=== PATIENT | male | born 1940 | race Caucasian/White ===

== ENCOUNTER 2017-12-21 17:06 | Emergency (ER) ==
[2017-12-21 17:12] VITALS: BP 133/87; TEMP 98; BMI 28.6
--- NOTE | 2017-12-21 18:29 | ED.PDOC ---
General ED Provider: Dr. NICOLAS DENIS Chief Complaint: Fall Stated Complaint: RIGHT CHEST WALL, NECK INJURY Time Seen by Physician: 17:30 (FALL LAST WEEK) Mode of Arrival: Walk-In Information Source: Patient Exam Limitations: No limitations Primary Care Provider: JACKELINE PAYNE Nursing and Triage Documentation Reviewed and Agree: Yes Reviewed sepsis parameters & appropriate labs ordered?: Yes System Inflammatory Response Syndrome: Not Applicable Sepsis Protocol: For patient's 13 years and over: Temp is 96.8 and below OR 101 and greater Pulse >90 BPM Resp >20/minute Acutely Altered Mental Status Are patient's symptoms suggestive of a new infection, such as: -Pneumonia -Skin, Soft Tissue -Endocarditis -UTI -Bone, Joint Infection -Implantable Device -Acute Abdominal Infection -Wound Infection -Meningitis -Blood Stream Catheter Infection -Unknown System Inflammatory Response Syndrome: Not Applicable Trauma/Injury Complaint Exam - Trauma Complaint/Exam Location of Pain or Injury: Reports: Chest (RIGHT LATERAL CHEST, SCALP AND NECK ) Mechanism of Injury: Reports: Fall ( ) Onset/Duration: 7 DAYS AGO Symptoms Are: Still present Timing of Treatment: Delayed Initial Severity: Moderate Current Severity: Moderate Character: Reports: Aching Aggravating: Reports: Palpation Alleviating: Reports: Rest Associated Signs and Symptoms: Denies: LOC, Confusion, Memory loss, Lethargy, Vomiting, Bleeding, Bruising, Swelling, Extremity disuse, Painful respiration, Hoarseness, Dysphagia, Hemoptysis, Significant blood loss Related History: Reports: Similar episode Penetrating Injury Risk Factors: Reports: None Nexus Low Risk Criteria: No evidence of intoxicat., No Altered LOC, No focal neuro deficit, No distracting injuries Glascow Coma Scale (see protocol): 15 Trauma Findings: Present: Neck tenderness. Absent: [place] eyes, Hemotympanum, Nasal deformity, Dental tenderness, Dental injury, Dental malocclusion, Neck spasm, SubQ Air, Crepitus, Airway obstructed, Trachea displaced, Labored respirations, Decreased breath sounds, Muffled heart sounds, Weak pulses, Absent pulses, Abdominal distention, Pelvic tenderness, Pelvic instability, Perineal blood, Meatal blood Skin Findings: Present: Normal findings Differential Diagnoses: Abrasion, Sprain, Strain Review of Systems - Review Of Systems Constitutional: Reports: No symptoms Eyes: Reports: No symptoms Ears, Nose, Mouth, Throat: Reports: No symptoms Respiratory: Reports: Cough Cardiac: Reports: Chest pain (RIGHT CHEST PAIN) GI: Reports: No symptoms : Reports: No symptoms Musculoskeletal: Reports: No symptoms Skin: Reports: No symptoms Neurological: Reports: No symptoms Endocrine: Reports: No symptoms Hematologic/Lymphatic: Reports: No symptoms All Other Systems: Reviewed and Negative Past Medical History - Past Medical History Previously Healthy: Yes Endocrine: Reports: None Cardiovascular: Reports: None Respiratory: Reports: None Hematological: Reports: None Gastrointestinal: Reports: None Genitourinary: Reports: None Neuro/Psych: Reports: None Musculoskeletal: Reports: None Cancer: Reports: None - Surgical History General Surgical History: Reports: None - Family History Family History: Reports: None - Social History Smoking Status: Former smoker Hx Substance Use: No Alcohol Screening: Occasionally Physical Exam - Physical Exam Appearance: Well-appearing, No pain distress, Well-nourished Eyes: REHANA, EOMI, Conjunctiva clear ENT: Ears normal, Nose normal, Oropharynx normal Respiratory: Airway patent, Breath sounds clear, Breath sounds equal, Respirations nonlabored Cardiovascular: RRR, Pulses normal, No rub, No murmur GI/: Soft, Nontender, No masses, Bowel sounds normal, No Organomegaly Musculoskeletal: Normal strength, ROM intact, No edema, No calf tenderness Skin: Warm, Dry (ABRASION SCALP) Neurological: Sensation intact, Motor intact, Reflexes intact, Cranial nerves intact, Alert, Oriented Psychiatric: Affect appropriate, Mood appropriate Interpretation - Radiology Interpretation Radiology Interpretation By: Radiologist Radiology Results: No acute changes Critical Care Note - Critical Care Note Total Time (mins): 0 Course - Course Orders, Labs, Meds: Orders Category Date Time Status CT CERVICAL SPINE W/O CONTRAST Stat RADS 12/21/17 17:[address] CHEST W/O CONTRAST Stat RADS 12/21/17 17:[address] HEAD W/O CONTRAST Stat RADS 12/21/17 17:28 Ordered Vital Signs: Temp Pulse Resp BP Pulse Ox 12/21/17 17:08 98.0 F 100 H 20 133/87 97 Departure - Departure Time of Disposition: 19:00 Disposition: HOME SELF-CARE Discharge Problem: Neck pain, Chest wall pain Instructions: Chest Wall Pain (ED), Thoracic Pain (ED) Condition: Good Pt referred to PMD for follow-up: Yes IPMP verified?: No Additional Instructions: Please call your Family Physician as soon as possible to schedule a follow-up appointment. Allergies/Adverse Reactions: Allergies No Known Allergies Allergy (Unverified 12/21/17 17:12) Home Medications: Ambulatory Orders Indomethacin [Indocin] 25 mg PO QID PRN 12/21/17 Levothyroxine Sodium [Synthroid] 75 mcg PO QDAC 12/21/17 Meclizine HCl 25 mg PO QID 12/21/17 Quinapril HCl 40 mg PO DAILY 12/21/17 Ranitidine HCl 150 mg PO DAILY 12/21/17 Triamterene/Hydrochlorothiazid [Triamterene-Hctz 37.5-25 mg Cp] 1 each PO DAILY 12/21/17 Disposition Discussed With: Patient, Family
--- NOTE | 2017-12-21 18:35 | CT ---
EXAM: CT scan of the chest without contrast HISTORY: Right rib pain, injury TECHNIQUE: Imaging of the chest was performed without contrast. 5 mm thin axial images and coronal and sagittal reconstructions and rotated 3-D reconstructions of the ribs were provided for interpreta tion. FINDINGS: Old right-sided rib fractures are seen. No definite acute rib fractures are identified. The scapula appear intact. No acute fractures are seen within the clavicles. The thoracic vertebral bodies are intact. The heart is normal size. No mediastinal abnormalities are seen. The lungs are clear. There is no pleural separation. IMPRESSION: No acute traumatic abnormalities are seen within the thorax.
--- NOTE | 2017-12-21 18:35 | CT ---
EXAM: CT scan of the head without contrast HISTORY: Fall TECHNIQUE: Imaging of the head was performed without contrast. 5 mm thin axial images and coronal a nd sagittal images were provided for interpretation. FINDINGS: The lateral ventricles and cortical sulci are prominent from atrophy. Diffuse low density changes are seen throughout the supratentorial white matter. No acute hemorrhages are seen. There is no mass effect. There are no extraaxial collections. The paranasal sinuses and mastoid air cells are clear. The calvarium and extracranial soft tissues are normal. IMPRESSION: No acute traumatic abnormalities are seen. Chronic small vessel ischemic changes seen throughout the supratentorial white matter. Mild cerebral atrophy.
--- NOTE | 2017-12-21 18:43 | CT ---
EXAM: CT of the cervical spine without contrast. HISTORY: Injury. Pain. PROCEDURE: Contiguous axial CT images of the cervical spine without contrast with coronal and sagitt al reformats. FINDINGS: There is normal alignment of the cervical vertebral bodies and facets. The vertebral body heights are maintained. There is multilevel disc space narrowing. There are posterior osteophytes a t multiple levels of the cervical spine. There is multilevel facet arthropathy. The C1-2 relationsh ip is maintained. No prevertebral soft tissue abnormality. Impression: No evidence of fracture. Normal alignment of the cervical spine with degenerative changes as described.
== END 2017-12-21 18:51 | disposition home or self-care (01) ==
LOC: ED 17:06
DX: R07.89 Other chest pain (principal); M54.2 Cervicalgia; S00.01XA Abrasion of scalp, initial encounter; W19.XXXA Unspecified fall, initial encounter
CPT/HCPCS: 99283

== ENCOUNTER 2023-01-10 15:54 | Observation (INO) ==
--- NOTE | 2023-01-10 16:13 | ED.PDOC ---
General <SANTOSH ALVARADO MD - Last Filed: 01/12/23 01:46> ED Provider: Dr. SANTOSH ALVARADO MD Chief Complaint: Chest Pain Stated Complaint: chest pain Time Seen by Provider: 01/10/23 16:07 Information Source: Patient Primary Care Provider: JACKELINE PAYNE Nursing and Triage Documentation Reviewed and Agree: Yes Does patient meet sepsis criteria?: No Sepsis Protocol: For patient's 13 years and over: Temp is 96.8 and below OR 101 and greater Pulse >90 BPM Resp >20/minute Acutely Altered Mental Status Are patient's symptoms suggestive of a new infection, such as: -Pneumonia -Skin, Soft Tissue -Endocarditis -UTI -Bone, Joint Infection -Implantable Device -Acute Abdominal Infection -Wound Infection -Meningitis -Blood Stream Catheter Infection -Unknown <LOW SU DO - Last Filed: 01/10/23 20:27> System Inflammatory Response Syndrome: Temp 101F or Greater and Not Applicable Review of Systems <SANTOSH ALVARADO MD - Last Filed: 01/12/23 01:46> Review Of Systems Cardiac: Reports Chest pain All Other Systems: Reviewed and Negative <LOW SU DO - Last Filed: 01/10/23 20:27> Review Of Systems Constitutional: Reports No symptoms PFSH <SANTOSH ALVARADO MD - Last Filed: 01/12/23 01:46> Medical History Hypertension I10 - Essential (primary) hypertension (ICD-10) Family History FATHER Colon cancer Mother CVA (cerebral vascular accident) SISTER Breast cancer BROTHER Parkinson disease Social History Smoking and tobacco status: Former smoker Alcohol intake: unknown Substance use type: does not use Adopted: No Caregiver/support person: Yes Foster care: No Household members: spouse Housing: house Marital status: M Lives independently: Yes Number of children: 5 Highest education level completed: Associate degree: occupational, technical, vocational program service: Yes status: medically discharged/retired branch: [employer] Current occupational status: retired Current diet type/program: regular Water heater temperature set < 120 degrees: Yes Working smoke detector in home: Yes Fire extinguisher in home: Yes Firearms in home: Yes Firearms unloaded and locked: Yes What type of physical activity do you participate in?: walking Physical Exam <SANTOSH ALVARADO MD - Last Filed: 01/12/23 01:46> Physical Exam Appearance: Reports Well-appearing Ill-appearing: None Pain Distress: None Eyes: Reports REHANA and EOMI ENT: Reports Ears normal, Nose normal and Oropharynx normal Neck: Supple Respiratory: Reports Airway patent, Breath sounds clear and Breath sounds equal Cardiovascular: Reports RRR, Pulses normal, No rub, No murmur and Other (mild left side chest wall tenderness on palpation) GI/: Reports Soft and Nontender Musculoskeletal: Reports Other (mild left parasternal tenderness on palpation) Skin: Reports Warm and Normal color Neurological: Reports Sensation intact and Motor intact Psychiatric: Reports Affect appropriate Interpretation <SANTOSH ALVARADO MD - Last Filed: 01/12/23 01:46> EKG Interpretation Time of EKG #1: 16:02 Rate: Normal Rhythm: Sinus Ectopy: None Evans: NL Interpretation: bifasicular block, no acute ST changes EKG Interpretation By: ED Physician <LOW SU DO - Last Filed: 01/10/23 20:27> Radiology Interpretation Radiology Interpretation By: ED Physician Radiology Results: Negative Exam Interpreted: CXR Xray Comments: no consolidation or pneumothroax Critical Care Note <SANTOSH ALVARADO MD - Last Filed: 01/12/23 01:46> Critical Care Note Total Critical Care Time (mins): 0 Course <SANTOSH ALVARADO MD - Last Filed: 01/12/23 01:46> Course 01/11/23 06:07 01/11/23 06:07 Orders, Labs, Meds: Lab Review 01/10/23 01/10/23 16:30 19:16 WBC 10.77 H RBC 5.29 Hgb 17.2 Hct 50.2 MCV 94.9 H MCH 32.5 H MCHC 34.3 RDW Coeff of Aguilar 12.4 Plt Count 283 Immature Gran % (Auto) 0.4 Neut % (Auto) 68.7 Lymph % (Auto) 20.0 [place] % (Auto) 9.1 Eos % (Auto) 1.5 Baso % (Auto) 0.3 Neut # (Auto) 7.4 H Lymph # (Auto) 2.2 [place] # (Auto) 1.0 Eos # (Auto) 0.2 Baso # (Auto) 0.0 Immature Gran # (Auto) 0.0 Sodium 132.8 L Potassium 3.74 Chloride 97.8 L Carbon Dioxide 29.7 Anion Gap 9.04 BUN 16.6 Creatinine 1.60 H Estimated GFR (MDRD) 42.00 BUN/Creatinine Ratio 10.37 Glucose 112.1 H Calcium 9.97 Total Bilirubin 0.76 AST 31.2 ALT 15.2 Alkaline Phosphatase 57.0 Troponin I < 0.012 0.012 Total Protein 7.31 Albumin 4.36 Globulin 2.95 Albumin/Globulin Ratio 1.47 D-Dimer 436.65 Orders Category Date Time Status PLACE PATIENT OBSERVATION .TO MEDSURG (MONITORED BED ADMISSION 01/10/23 20:30 Completed ) EKG-(ED ONLY) Stat CARDIO 01/10/23 16:32 Completed ACTIVITY .Early Mobilization for VTE Prevention CARE 01/10/23 20:30 Completed INTAKE & OUTPUT Q8HR CARE 01/10/23 20:30 Completed TELEMETRY MONITORING TELE CARE 01/10/23 20:30 Completed VITAL SIGNS Q4HR CARE 01/10/23 20:30 Completed CARDIAC DIET DIETARY 01/11/23 Breakfast Completed Monitor [ED [employer]IPAL APPLIED] .ONCE EMERGENCY 01/10/23 16:13 Completed CBC W/ AUTO DIFF DAILY@0600 LAB 01/11/23 06:07 Completed CBC W/ AUTO DIFF Stat LAB 01/10/23 16:30 Completed CMP [COMPREHENSIVE METABOLIC PANEL] Stat LAB 01/10/23 16:30 Completed COMPREHENSIVE METABOLIC PANEL DAILY@0600 LAB 01/11/23 06:07 Completed D-DIMER Stat LAB 01/10/23 19:16 Completed TROPONIN I Stat LAB 01/10/23 16:30 Completed TROPONIN I Stat LAB 01/10/23 19:16 Completed TROPONIN I Timed LAB 01/10/23 23:59 Completed Acetaminophen [Tylenol] Meds 01/10/23 20:41 Discontinued 650 mg PO Q4H PRN Aspirin [Aspirin Chewable] Meds 01/10/23 18:58 Discontinued 324 mg PO ONCE STA Diphenhydramine Inj [Benadryl] Meds 01/10/23 19:08 Discontinued 25 mg IVP ONCE ONE Hydralazine HCl Meds 01/10/23 20:35 Discontinued 10 mg IVP Q6H PRN Hydralazine HCl Meds 01/10/23 16:14 Discontinued 20 mg IVP ONCE STA Ketorolac Tromethamine [Toradol] Meds 01/10/23 16:14 Discontinued 30 mg IVP ONCE STA Morphine Sulfate [Morphine 2 mg/ml Syringe] Meds 01/10/23 18:07 Discontinued 2 mg IVP ONCE STA Ondansetron HCl/Pf [Zofran 4 mg/2 ml] Meds 01/10/23 20:41 Discontinued 4 mg IVP Q6H PRN Sodium Chloride 0.9% [Sodium Chloride] 1,000 ml Meds 01/10/23 17:46 Discontinued IV BOLUS CXR [CHEST, 1V AP ONLY] Stat RADS 01/10/23 16:13 Completed Medications Discontinued Medications Generic Name Dose Route Start Last Admin Trade Name Freq PRN Reason Stop Dose Admin Acetaminophen 650 mg 01/10/23 20:41 01/11/23 06:03 Acetaminophen 325 Mg Tablet PO 650 mg Q4H PRN Administration Mild Pain Amlodipine Besylate 5 mg 01/11/23 09:00 01/11/23 09:18 Amlodipine Besylate 5 Mg Tablet PO 5 mg DAILY AP Administration Aspirin 324 mg 01/10/23 18:58 01/10/23 19:06 Aspirin 81 Mg Tab.Chew PO 01/10/23 18:59 324 mg ONCE STA Administration Aspirin 81 mg 01/11/23 09:00 01/11/23 09:18 Aspirin 81 Mg Tab.Chew PO 81 mg DAILYWM AP Administration Dexamethasone Sodium Phosphate 10 mg 01/11/23 12:00 01/11/23 12:09 Dexamethasone Sod Phos 10 Mg/Ml Inj IVP 01/11/23 12:01 10 mg ONCE ONE Administration Diphenhydramine HCl 25 mg 01/10/23 19:08 01/10/23 19:25 Diphenhydramine Inj 50 Mg/Ml Vial IVP 01/10/23 19:09 25 mg ONCE ONE Administration Hydralazine HCl 20 mg 01/10/23 16:14 01/10/23 16:31 Hydralazine Hcl 20 Mg/Ml Sdv IVP 01/10/23 16:15 20 mg ONCE STA Administration Hydralazine HCl 10 mg 01/10/23 20:35 Hydralazine Hcl 20 Mg/Ml Sdv IVP Q6H PRN Hypertension Sodium Chloride 1,000 mls @ 1,000 mls/hr 01/10/23 17:46 01/10/23 17:58 Sodium Chloride IV 01/10/23 18:45 1,000 mls/hr BOLUS STA Administration Indomethacin 25 mg 01/11/23 08:48 Indomethacin 25 Mg Capsule PO QID PRN GOUT FLARE UP Ketorolac Tromethamine 30 mg 01/10/23 16:14 01/10/23 16:38 Ketorolac Tromethamine 30 Mg/Ml Vial IVP 01/10/23 16:15 30 mg ONCE STA Administration Ketorolac Tromethamine 15 mg 01/11/23 11:47 01/11/23 12:09 Ketorolac Tromethamine 15 Mg/Ml Vial IVP 01/11/23 11:48 15 mg ONCE ONE Administration Levothyroxine Sodium 112 mcg 01/12/23 06:30 Levothyroxine Sodium 112 Mcg Tablet PO QDAC AP Losartan Potassium 50 mg 01/11/23 09:00 01/11/23 09:18 Losartan Potassium 25 Mg Tablet PO 50 mg DAILY AP Administration Morphine Sulfate 2 mg 01/10/23 18:07 01/10/23 18:30 Morphine Sulfate 2 Mg/Ml Syringe IVP 01/10/23 18:08 2 mg ONCE STA Administration Nitroglycerin 0.4 mg 01/11/23 08:46 01/11/23 09:18 Nitroglycerin 0.4 Mg Tab.Subl SL 0.4 mg Q5MIN X 3 DOSES PRN Administration Chest Pain Ondansetron HCl 4 mg 01/10/23 20:41 Ondansetron Hcl/Pf 4 Mg/2 Ml Sdv IVP Q6H PRN Nausea / Vomiting Sodium Chloride 1 syr 01/11/23 06:00 01/11/23 12:09 0.9% Sodium Chloride 10 Ml Disp.Syrin IVF 1 syr Q8HR AP Administration Vital Signs: Temp Pulse Resp BP Pulse Ox 01/10/23 16:03 98.8 F 90 20 161/115 H 92 L 82 years old male with past medical history of hypertension hypothyroidism, came to the ER from home for chest pain. Patient has been having chest pain for 4 days the pain is on the left side radiating to the left arm which started when he was sleeping. The pain is nonexertional but would get better if he changes his position or sometimes if he raises her arm his arm above his head pain would get better. No previous similar episodes no fever. Ordered a chest x-ray, EKG shows normal sinus rhythm at 89 with bifascicular block no acute ST changes. <LOW SU, DO - Last Filed: 01/10/23 20:27> Course Orders, Labs, Meds: Lab Review 01/10/23 01/10/23 16:30 19:16 WBC 10.77 H RBC 5.29 Hgb 17.2 Hct 50.2 MCV 94.9 H MCH 32.5 H MCHC 34.3 RDW Coeff of Aguilar 12.4 Plt Count 283 Immature Gran % (Auto) 0.4 Neut % (Auto) 68.7 Lymph % (Auto) 20.0 [place] % (Auto) 9.1 Eos % (Auto) 1.5 Baso % (Auto) 0.3 Neut # (Auto) 7.4 H Lymph # (Auto) 2.2 [place] # (Auto) 1.0 Eos # (Auto) 0.2 Baso # (Auto) 0.0 Immature Gran # (Auto) 0.0 Sodium 132.8 L Potassium 3.74 Chloride 97.8 L Carbon Dioxide 29.7 Anion Gap 9.04 BUN 16.6 Creatinine 1.60 H Estimated GFR (MDRD) 42.00 BUN/Creatinine Ratio 10.37 Glucose 112.1 H Calcium 9.97 Total Bilirubin 0.76 AST 31.2 ALT 15.2 Alkaline Phosphatase 57.0 Troponin I < 0.012 0.012 Total Protein 7.31 Albumin 4.36 Globulin 2.95 Albumin/Globulin Ratio 1.47 D-Dimer 436.65 Orders Category Date Time Status PLACE PATIENT OBSERVATION .TO MEDSURG (MONITORED BED ADMISSION 01/10/23 20:30 Completed ) EKG-(ED ONLY) Stat CARDIO 01/10/23 16:32 Completed ACTIVITY .Early Mobilization for VTE Prevention CARE 01/10/23 20:30 Completed INTAKE & OUTPUT Q8HR CARE 01/10/23 20:30 Completed TELEMETRY MONITORING TELE CARE 01/10/23 20:30 Completed VITAL SIGNS Q4HR CARE 01/10/23 20:30 Completed CARDIAC DIET DIETARY 01/11/23 Breakfast Completed Monitor [ED [employer]IPAL APPLIED] .ONCE EMERGENCY 01/10/23 16:13 Completed CBC W/ AUTO DIFF DAILY@0600 LAB 01/11/23 06:07 Completed CBC W/ AUTO DIFF Stat LAB 01/10/23 16:30 Completed CMP [COMPREHENSIVE METABOLIC PANEL] Stat LAB 01/10/23 16:30 Completed COMPREHENSIVE METABOLIC PANEL DAILY@0600 LAB 01/11/23 06:07 Completed D-DIMER Stat LAB 01/10/23 19:16 Completed TROPONIN I Stat LAB 01/10/23 16:30 Completed TROPONIN I Stat LAB 01/10/23 19:16 Completed TROPONIN I Timed LAB 01/10/23 23:59 Completed Acetaminophen [Tylenol] Meds 01/10/23 20:41 Discontinued 650 mg PO Q4H PRN Aspirin [Aspirin Chewable] Meds 01/10/23 18:58 Discontinued 324 mg PO ONCE STA Diphenhydramine Inj [Benadryl] Meds 01/10/23 19:08 Discontinued 25 mg IVP ONCE ONE Hydralazine HCl Meds 01/10/23 20:35 Discontinued 10 mg IVP Q6H PRN Hydralazine HCl Meds 01/10/23 16:14 Discontinued 20 mg IVP ONCE STA Ketorolac Tromethamine [Toradol] Meds 01/10/23 16:14 Discontinued 30 mg IVP ONCE STA Morphine Sulfate [Morphine 2 mg/ml Syringe] Meds 01/10/23 18:07 Discontinued 2 mg IVP ONCE STA Ondansetron HCl/Pf [Zofran 4 mg/2 ml] Meds 01/10/23 20:41 Discontinued 4 mg IVP Q6H PRN Sodium Chloride 0.9% [Sodium Chloride] 1,000 ml Meds 01/10/23 17:46 Discontinued IV BOLUS CXR [CHEST, 1V AP ONLY] Stat RADS 01/10/23 16:13 Completed Medications Discontinued Medications Generic Name Dose Route Start Last Admin Trade Name Freq PRN Reason Stop Dose Admin Acetaminophen 650 mg 01/10/23 20:41 01/11/23 06:03 Acetaminophen 325 Mg Tablet PO 650 mg Q4H PRN Administration Mild Pain Amlodipine Besylate 5 mg 01/11/23 09:00 01/11/23 09:18 Amlodipine Besylate 5 Mg Tablet PO 5 mg DAILY AP Administration Aspirin 324 mg 01/10/23 18:58 01/10/23 19:06 Aspirin 81 Mg Tab.Chew PO 01/10/23 18:59 324 mg ONCE STA Administration Aspirin 81 mg 01/11/23 09:00 01/11/23 09:18 Aspirin 81 Mg Tab.Chew PO 81 mg DAILYWM AP Administration Dexamethasone Sodium Phosphate 10 mg 01/11/23 12:00 01/11/23 12:09 Dexamethasone Sod Phos 10 Mg/Ml Inj IVP 01/11/23 12:01 10 mg ONCE ONE Administration Diphenhydramine HCl 25 mg 01/10/23 19:08 01/10/23 19:25 Diphenhydramine Inj 50 Mg/Ml Vial IVP 01/10/23 19:09 25 mg ONCE ONE Administration Hydralazine HCl 20 mg 01/10/23 16:14 01/10/23 16:31 Hydralazine Hcl 20 Mg/Ml Sdv IVP 01/10/23 16:15 20 mg ONCE STA Administration Hydralazine HCl 10 mg 01/10/23 20:35 Hydralazine Hcl 20 Mg/Ml Sdv IVP Q6H PRN Hypertension Sodium Chloride 1,000 mls @ 1,000 mls/hr 01/10/23 17:46 01/10/23 17:58 Sodium Chloride IV 01/10/23 18:45 1,000 mls/hr BOLUS STA Administration Indomethacin 25 mg 01/11/23 08:48 Indomethacin 25 Mg Capsule PO QID PRN GOUT FLARE UP Ketorolac Tromethamine 30 mg 01/10/23 16:14 01/10/23 16:38 Ketorolac Tromethamine 30 Mg/Ml Vial IVP 01/10/23 16:15 30 mg ONCE STA Administration Ketorolac Tromethamine 15 mg 01/11/23 11:47 01/11/23 12:09 Ketorolac Tromethamine 15 Mg/Ml Vial IVP 01/11/23 11:48 15 mg ONCE ONE Administration Levothyroxine Sodium 112 mcg 01/12/23 06:30 Levothyroxine Sodium 112 Mcg Tablet PO QDAC AP Losartan Potassium 50 mg 01/11/23 09:00 01/11/23 09:18 Losartan Potassium 25 Mg Tablet PO 50 mg DAILY AP Administration Morphine Sulfate 2 mg 01/10/23 18:07 01/10/23 18:30 Morphine Sulfate 2 Mg/Ml Syringe IVP 01/10/23 18:08 2 mg ONCE STA Administration Nitroglycerin 0.4 mg 01/11/23 08:46 01/11/23 09:18 Nitroglycerin 0.4 Mg Tab.Subl SL 0.4 mg Q5MIN X 3 DOSES PRN Administration Chest Pain Ondansetron HCl 4 mg 01/10/23 20:41 Ondansetron Hcl/Pf 4 Mg/2 Ml Sdv IVP Q6H PRN Nausea / Vomiting Sodium Chloride 1 syr 01/11/23 06:00 01/11/23 12:09 0.9% Sodium Chloride 10 Ml Disp.Syrin IVF 1 syr Q8HR AP Administration Vital Signs: Temp Pulse Resp BP Pulse Ox 01/10/23 16:03 98.8 F 90 20 161/115 H 92 L 82 years old male with past medical history of hypertension hypothyroidism, came to the ER from home for chest pain. Patient has been having chest pain for 4 days the pain is on the left side radiating to the left arm which started when he was sleeping. The pain is nonexertional but would get better if he changes his position or sometimes if he raises her arm his arm above his head pain would get better. No previous similar episodes no fever. Ordered a chest x-ray, EKG shows normal sinus rhythm at 89 with bifascicular block no acute ST changes. MDM: Patient is a 82 yo M here for chest pain He had pain for 4 days, worse lying down, came to ER with L arm pain Exam reassuring Afebrile and vitally stable I assumed Care from Dr. Viveros, hx from doctor kinga and daughter, Chart review by me 3+ labs and 2 images reviewed by me Patient given aspirin Patient had erythema to IV site from morphine, I would avoid in the future- benadryl given Patient amenable to chest pain observation Consults to Hospitalist Team LAST IRONER Tayo Cornejo delta trop negative, d dimer negative, EKG shows RBBB, no acute st elevations/equivalents WDX; Chest pain unknown etiology, leukocytosis, RBBB, Bifascicular block acute condition moderate complexity DDX: I considered sepsis, VTE, Stemi but these were not found Patient admitted stable LAST IRONER Terrell to place admit orders All questions answered Patient stable Risks benefits and alternatives discussed RAIMUNDO Risk Score <SANTOSH ALVARADO MD - Last Filed: 01/12/23 01:46> RAIMUNDO Risk Score: Risk Score Odds of by 30D 0 0.1 (0.1-0.2) 1 0.3 (0.2-0.3) 2 0.4 (0.3-0.5) 3 0.7 (0.6-0.9) 4 1.2 (1.0-1.5) 5 2.2 (1.9-2.6) 6 3.0 (2.5-3.6) 7 4.8 (3.8-6.1) Discharge Plan Discharge Patient Disposition: PLACED OBSERVATION Discharge Problem: Right bundle branch block, Chest pain of unknown etiology, Leukocytosis, Bifascicular block Did you review [place] ACCOUNTS RECEIVABLE ACCOUNTANT for ALL controlled substances?: Not Applicable ED Provider: LOW SU Condition: Fair <SANTOSH ALVARADO MD - Last Filed: 01/12/23 01:46> Physician Progress Note: []
[2023-01-10] MEDS ORDERED: TORADOL IVP STA (16:14)
[2023-01-10] MEDS ORDERED: HYDRALAZINE HCL IVP STA (16:14)
[2023-01-10 16:36] LABS: BASOPHILS % (AUTO) 0.3 % (0.0-3.0); EOSINOPHILS # (AUTO) 0.2 K/ul (0.0-0.7); EOSINOPHILS % (AUTO) 1.5 % (0.0-7.0); HEMATOCRIT 50.2 % (42.0-52.0); HEMOGLOBIN 17.2 g/dl (14.0-18.0); IMMATURE GRANULOCYTE % (AUTO) 0.4 % (0.0-5.0); LYMPHOCYTES # (AUTO) 2.2 K/uL (0.60-3.4); MEAN CORPUSCULAR HEMOGLOBIN 32.5 pg (27.0-31.0); MEAN CORPUSCULAR HGB CONC 34.3 (31.8-35.4); MEAN CORPUSCULAR VOLUME 94.9 fl (80.0-94.0); MONOCYTES % (AUTO) 9.1 (0-10); NEUTROPHILS # (AUTO) 7.4 K/ul (2.0-6.9); NEUTROPHILS % (AUTO) 68.7 % (42.2-75.2); PLATELET COUNT 283 10^3/uL (140-440); RDW COEFFICIENT OF VARIATION 12.4 % (11.6-14.8); RED BLOOD COUNT 5.29 10^6/ul (4.70-6.10); WHITE BLOOD COUNT 10.77 K/ul (4.2-10.2)
--- NOTE | 2023-01-10 16:42 | DI ---
EXAM: CHEST ONE VIEW, FRONTAL VIEW ONLY. HISTORY: Chest pain. COMPARISON: 06/29/2019, 12/21/2017. FINDINGS: The heart size is normal. There is no pulmonary vascular congestion. The lungs are clear . No pleural effusion or pneumothorax is seen. No acute osseous abnormality is identified. Old rig ht rib fractures noted. Since the prior study, there has been no significant interval change. IMPRESSION: No acute cardiopulmonary process.
[2023-01-10 16:49] LABS: ALANINE AMINOTRANSFERASE 15.2 U/L (0-50); ALBUMIN 4.36 g/dL (3.5-5.0); ASPARTATE AMINO TRANSFERASE 31.2 U/L (17-59); BILIRUBIN,TOTAL 0.76 mg/dL (0.2-1.3); BLOOD UREA NITROGEN 16.6 mg/dL (9-20); CALCIUM 9.97 mg/dL (8.4-10.2); CARBON DIOXIDE 29.7 mmol/L (22-30.0); CHLORIDE 97.8 mmol/L (98-107); GLUCOSE 112.1 mg/dL (74-106); POTASSIUM 3.74 mmol/L (3.5-5.1); SODIUM 132.8 mmol/L (134.5-145); TOTAL PROTEIN 7.31 g/dL (6.3-8.2)
[2023-01-10 17:00] LABS: TROPONIN I < 0.012 ng/ml (0.0000-0.120)
[2023-01-10] MEDS ORDERED: SODIUM CHLORIDE 1,000 ML IV STA (17:46)
[2023-01-10] MEDS ORDERED: MORPHINE 2 MG/ML SYRINGE IVP STA (18:07)
[2023-01-10] MEDS ORDERED: ASPIRIN CHEWABLE PO STA (18:58)
[2023-01-10] MEDS ORDERED: BENADRYL IVP ONE (19:08)
[2023-01-10] MEDS ORDERED: HYDRALAZINE HCL IVP PRN (20:35)
[2023-01-10] MEDS ORDERED: ZOFRAN 4 MG/2 ML IVP PRN (20:41)
[2023-01-10] MEDS ORDERED: TYLENOL PO PRN (20:41)
[2023-01-10 21:57] VITALS: BMI 28.1
[2023-01-11 05:39] VITALS: RESP 16
[2023-01-11 06:16] LABS: BASOPHILS # (AUTO) 0.1 K/uL (0-0.2); BASOPHILS % (AUTO) 0.5 % (0.0-3.0); EOSINOPHILS # (AUTO) 0.3 K/ul (0.0-0.7); EOSINOPHILS % (AUTO) 2.7 % (0.0-7.0); HEMOGLOBIN 16.5 g/dl (14.0-18.0); IMMATURE GRANULOCYTE % (AUTO) 0.4 % (0.0-5.0); LYMPHOCYTES # (AUTO) 2.2 K/uL (0.60-3.4); LYMPHOCYTES % (AUTO) 21.9 (10.0-50.0); MEAN CORPUSCULAR HEMOGLOBIN 32.4 pg (27.0-31.0); MEAN CORPUSCULAR HGB CONC 33.7 (31.8-35.4); MEAN CORPUSCULAR VOLUME 96.1 fl (80.0-94.0); MONOCYTES % (AUTO) 10.2 (0-10); NEUTROPHILS # (AUTO) 6.4 K/ul (2.0-6.9); NEUTROPHILS % (AUTO) 64.3 % (42.2-75.2); PLATELET COUNT 231 10^3/uL (140-440); RDW COEFFICIENT OF VARIATION 12.4 % (11.6-14.8); WHITE BLOOD COUNT 9.98 K/ul (4.2-10.2)
[2023-01-11 06:28] LABS: ALANINE AMINOTRANSFERASE 12.1 U/L (0-50); ALBUMIN 3.68 g/dL (3.5-5.0); ALKALINE PHOSPHATASE 48.5 U/L (56-119); ASPARTATE AMINO TRANSFERASE 31.4 U/L (17-59); BILIRUBIN,TOTAL 0.74 mg/dL (0.2-1.3); BLOOD UREA NITROGEN 18.3 mg/dL (9-20); CALCIUM 9.68 mg/dL (8.4-10.2); CARBON DIOXIDE 28.1 mmol/L (22-30.0); CHLORIDE 103.9 mmol/L (98-107); CREATININE 1.65 mg/dL (0.60-1.10); GLUCOSE 100.2 mg/dL (74-106); POTASSIUM 4.05 mmol/L (3.5-5.1); SODIUM 135.5 mmol/L (134.5-145); TOTAL PROTEIN 6.21 g/dL (6.3-8.2)
[2023-01-11 06:40] LABS: TROPONIN I 0.034 ng/ml (0.0000-0.120)
[2023-01-11 07:22] LABS: CHOLESTEROL 126.7 mg/dL (0-200); HDL CHOLESTEROL 34.3 mg/dL (35-60); TRIGLYCERIDES 108.7 mg/dL (0-150)
[2023-01-11] MEDS ORDERED: NITROSTAT SL PRN (08:46)
[2023-01-11] MEDS ORDERED: INDOCIN PO PRN (08:48)
[2023-01-11] MEDS ORDERED: NORVASC PO SCH (09:00)
[2023-01-11] MEDS ORDERED: COZAAR PO SCH (09:00)
[2023-01-11] MEDS ORDERED: ASPIRIN CHEWABLE PO SCH (09:00)
[2023-01-11 10:27] LABS: CREATINE KINASE 119.5 U/L (55-170)
[2023-01-11 10:36] VITALS: BP 135/73; TEMP 96.5
[2023-01-11 10:44] LABS: CREATINE KINASE MB 2.48 ng/ml (0.0-2.38)
[2023-01-11] MEDS ORDERED: SODIUM CHLORIDE IV ONE (11:47)
[2023-01-11] MEDS ORDERED: TORADOL IVP ONE (11:47)
[2023-01-11] MEDS ORDERED: DECADRON IV ONE (11:47)
--- NOTE | 2023-01-11 11:55 | PCM.SS ---
Provider Provider[facility]ENCIO SINGH, [facility] Ad[facility] Date Admission Date: 01/10/23 Discharge Date Discharge Date: 01/11/23 Primary Care Physician Primary Care Physician: JACKELINE PAYNE Chief Complaint Reason For Visit: CHEST PAIN History of Present Illness History of Present Illness: Admitted 01/10/23 20:48, this 82 year old /WHITE/M presented to the ER with chest pain. Patient states he has had left-sided chest pain intermittently for the last 4 days. Unable to describe the pain but reports radiates through to back and that position changes make it better. No aggravating factors. Denies any previous cardiac history. Has past medical history of hypertension. Denies any fever, chills, shortness of breath, nausea, vomiting, diarrhea, or other symptoms. Denies any recent injury to the area. [facility] Medical History Hypertension I10 - Essential (primary) hypertension (ICD-10) Family History FATHER Colon cancer Mother CVA (cerebral vascular accident) SISTER Breast cancer BROTHER Parkinson disease Social History Smoking and tobacco status: Former smoker Alcohol intake: unknown Substance use type: does not use Adopted: No Caregiver/support person: Yes Foster care: No Household members: spouse Housing: house Marital status: M Lives independently: Yes Number of children: 5 Highest education level completed: Associate degree: occupational, technical, vocational program service: Yes status: medically discharged/retired branch: [employer] Current occupational status: retired Current diet type/program: regular Water heater temperature set < 120 degrees: Yes Working smoke detector in home: Yes Fire extinguisher in home: Yes Firearms in home: Yes Firearms unloaded and locked: Yes What type of physical activity do you participate in?: walking Medications Mecications: Medications at Discharge (Home Meds & RX) indomethacin 25 mg capsule 25 mg PO QID PRN gout flare up 12/21/17 levothyroxine 75 mcg tablet (Synthroid) 112 mcg PO QDAC 12/21/17 amlodipine 5 mg tablet 5 mg PO DAILY 04/02/22 levothyroxine 112 mcg tablet (Synthroid) 112 mcg PO DAILY 01/10/23 losartan 50 mg tablet 50 mg PO DAILY 01/10/23 Allergies Allergies Allergy/AdvReac Type Severity Reaction Status Date / Time morphine Allergy Intermediate Hives Verified 01/11/23 07:28 Review of Systems Constitutional: Reports No symptoms Head: Reports Normocephalic Eyes: Reports No symptoms Ears: Reports No symptoms Nose: Reports No symptoms Throat: Reports No symptoms Cardiovascular: Reports Chest pain (left) Respiratory: Reports No symptoms Gastrointestinal: Reports No symptoms Genitourinary: Reports No Symptoms Musculoskeletal: Reports No symptoms Endocrine: Reports No symptoms Hematology: Reports No symptoms Immunology: Reports No symptoms Neurological: Reports No symptoms Psychiatric: Reports No symptoms Physical Examination Appearance: Positive Well-appearing, Well-nourished, No Apparent Distress and Alert and Oriented x3 Head: Positive Normocephalic and Atraumatic Eyes: Positive REHANA ENT: Positive Oropharynx Normal Neck: Positive Supple, Non-Tender and No Masses Heart: Positive RRR and No Murmurs Respiratory: Positive Airway patent, Breath Sounds Clear, Bilaterally, Breath Sounds Equal and Respirations Nonlabored GI/: Positive Soft, Nontender, Bowel sounds normal, No Distention, No masses and No Organomegaly Extremities: Positive Pedal Pulses Palpable Bilaterally Neurological: Positive Normal Gait, Recent Memory Intact, Remote Memory Intact, Sensation Intact, Motor Intact, Reflexes Intact, Alert and Oriented Psychiatric: Positive Normal Judgement, Normal Insight, Affect Appropriate and Mood Appropriate Vital Signs (Last 4 Hours) Vital Signs Last 4 Hours: Vital Signs: Last 4 Hours 01/11/23 10:00 Temperature 96.5 F L Temperature Source Temporal Artery Scan Pulse Rate 77 Respiratory Rate 16 Blood Pressure 135/73 Blood Pressure Mean 93 Blood Pressure Location Left Radial Artery O2 Sat by Pulse Oximetry 96 Oxygen Delivery Method Room Air Labs This Visit Labs This Visit: Labs This Visit 01/10/23 01/10/23 01/10/23 16:30 19:16 23:59 WBC 10.77 H RBC 5.29 Hgb 17.2 Hct 50.2 MCV 94.9 H MCH 32.5 H MCHC 34.3 RDW Coeff of [place] 12.4 Plt Count 283 Immature Gran % (Auto) 0.4 Neut % (Auto) 68.7 Lymph % (Auto) 20.0 [place] % (Auto) 9.1 Eos % (Auto) 1.5 Baso % (Auto) 0.3 Neut # (Auto) 7.4 H Lymph # (Auto) 2.2 [place] # (Auto) 1.0 Eos # (Auto) 0.2 Baso # (Auto) 0.0 Immature Gran # (Auto) 0.0 Sodium 132.8 L Potassium 3.74 Chloride 97.8 L Carbon Dioxide 29.7 Anion Gap 9.04 BUN 16.6 Creatinine 1.60 H Estimated GFR (MDRD) 42.00 BUN/Creatinine Ratio 10.37 Glucose 112.1 H Hemoglobin A1c Calcium 9.97 Total Bilirubin 0.76 AST 31.2 ALT 15.2 Alkaline Phosphatase 57.0 Total Creatine Kinase CK-MB (CK-2) CK-MB (CK-2) % Troponin I < 0.012 0.012 0.026 Total Protein 7.31 Albumin 4.36 Globulin 2.95 Albumin/Globulin Ratio 1.47 Triglycerides Cholesterol LDL Cholesterol, Calc VLDL Cholesterol HDL Cholesterol Cholesterol/HDL Ratio D-Dimer 436.65 01/11/23 01/11/23 01/11/23 06:02 06:07 08:55 WBC 9.98 RBC 5.10 Hgb 16.5 Hct 49.0 MCV 96.1 H MCH 32.4 H MCHC 33.7 RDW Coeff of [place] 12.4 Plt Count 231 Immature Gran % (Auto) 0.4 Neut % (Auto) 64.3 Lymph % (Auto) 21.9 [place] % (Auto) 10.2 H Eos % (Auto) 2.7 Baso % (Auto) 0.5 Neut # (Auto) 6.4 Lymph # (Auto) 2.2 [place] # (Auto) 1.0 Eos # (Auto) 0.3 Baso # (Auto) 0.1 Immature Gran # (Auto) 0.0 Sodium 135.5 Potassium 4.05 Chloride 103.9 Carbon Dioxide 28.1 Anion Gap 7.55 BUN 18.3 Creatinine 1.65 H Estimated GFR (MDRD) 40.00 BUN/Creatinine Ratio 11.09 Glucose 100.2 Hemoglobin A1c 5.45 Calcium 9.68 Total Bilirubin 0.74 AST 31.4 ALT 12.1 Alkaline Phosphatase 48.5 L Total Creatine Kinase 119.5 CK-MB (CK-2) 2.480 H CK-MB (CK-2) % 2.0700 Troponin I 0.034 0.025 Total Protein 6.21 L Albumin 3.68 Globulin 2.53 Albumin/Globulin Ratio 1.45 Triglycerides 108.7 Cholesterol 126.7 LDL Cholesterol, Calc 71 VLDL Cholesterol 22 HDL Cholesterol 34.3 L Cholesterol/HDL Ratio 3.7 L D-Dimer Review Review Statement: I have independently reviewed and interpreted the labs/EKGs/imaging that were o rdered by the ER provider. I have reviewed all outside records that are available currently in our EMR including imaging/notes/labs from previous visits. Plan Reccomendations/Plan: 1. Chest pain rule out ACS -serial troponins trended and negative. EKG with no acute abnormalities. Echo and stress test completed today per Dr. Latonia De Jesus. Dr. Latonia De Jesus's report showed LVH mildly related to hypertension. Stress test negative. Appears to be musculoskeletal related patient is active kearney. Treating with steroids and Toradol. Follow-up with PCP this week. 2. Hypertension -chronic, stable, continue home medicines as prescribed Review With Patient Reviewed with Patient and Family: Patient and family have been counseled on condition and care plan and have no immediate questions. I have personally discussed and reviewed the patient's visit/current labs/imaging/decision making with Dr. Matteo De Jesus, my supervising attending. Total number of minutes spent with patient 85 min. More than 50% of the time spent with this patient was devoted to counseling and coordination of care. Time of Admission:01/10/23 20:48 Time of Discharge: 01/11/23 12:00 Discharge Plan Discharge Discharge Orders: Discharge Patient (ONCE); Ordered 01/11/23 Ordered By: THALIA SALES Activity Restrictions/Additional Instructions: Cardiac Diet Activity as tolerated. Take toradol 10 mg PO PRN for muscle pain. Follow-up with PCP this week. Instructions: Chest Wall Pain (GEN) Patient Disposition: HOME SELF-CARE Prescriptions: New ketorolac 10 mg tablet 10 mg PO Q6H PRN (Reason: pain) 5 Days Qty: 20 0RF Continued amlodipine 5 mg tablet 5 mg PO DAILY losartan 50 mg tablet 50 mg PO DAILY levothyroxine [Synthroid] 112 mcg tablet 112 mcg PO DAILY levothyroxine [Synthroid] 75 MCG tablet 112 mcg PO QDAC indomethacin 25 MG capsule 25 mg PO QID PRN (Reason: gout flare up) Did you review [place] EXEC[employer]IVE [employer]ACH for ALL controlled substances?: No Discussed opioids are addictive and Narcan is available by prescription or from pharmacy.: No Condition: Fair
[2023-01-11] MEDS ORDERED: DECADRON IVP ONE (12:00)
[2023-01-12] MEDS ORDERED: SYNTHROID PO SCH ×2 (06:30)
--- NOTE | 2023-01-13 07:03 | STRESSMOD ---
Date of Test: 01/11/2023 Ordering Physician: HOSPITALIST-THALIA / PCP-DR. JACKELINE PAYNE Occupation:[employer] Reason for Exam: CHEST PAIN Smoking History: QUIT 1967 Height: 67" Weight: 180 LBS Current Medications: AMLODIPINE, INDOMETHACIN, SYNTHROID, LOSARTAN Resting EKG: SINUS RHYTHM, RIGHT BUNDLE BRANCH BLOCK/ LVH Target Heart Rate: 117 S-T SEGMENT STAGE MPH/GRADE HEART RATE BPM BLOOD PRESSURE mmhg RHYTHM +/- ELEVATION DEPRESSION SYMPTOMS At Rest 68 BPM 132/70 MMHG SR X NONE 1 1.7/0% 90 BPM 140/60 MMHG SR X NONE 2 1.7/5% 92 BPM 150/60 MMHG SR X NONE 3 1.7/10% 4 2.5/12% 5 3.4/14% Immediately After 111 BPM SR X FATIGUE Minutes Post Exercise 3" 73 BPM 154/62 MMHG SR X NONE Minutes Post Exercise 6" 73 BPM 143/70 MMHG SR X NONE DURATION OF EXERCISE: 10:32 MAXIMUM HEART RATE REACHED: 111 BPM REASON FOR TERMINATION: FATIGUE 95% OXYGEN SATURATION WITH EXERCISE ON ROOM AIR METS 7.0 INTERPRETATION: 1. NO EVIDENCE OF ISCHEMIA BY ST-T WAVE (RESTING 68 BPM TO 111 BPM WITH EXERCISE) 2. NO CHEST PAIN OR DISCOMFORT 3. RARE PVC'S -ISOLATED WITH EXERCISE 4. BLOOD PRESSURE RESPONSE NORMAL NORMAL LEFT VENTRICLE CONTRACTILITY--AT REST AND WITH EXERCISE MTDD
--- NOTE | 2023-01-13 07:06 | ECHOSTRESS ---
Date of Exam: 01/11/2023 Ordering Physician: EMILIA/SEBASTIEN PAYNE Reason for Echo: CHEST PAIN STRESS TEST--NO ISCHEMIA M-Mode Normal Adult Results LV Dimensions Normal Adult Results AoV Opening excursions >1.6 LVEDD-base- 3.5-5.8 Ao root dimensions 2.0-3.7 LVESD-base- 3.1-4.6 L. Atrium dimensions 1.9-3.8 Post. Wall thickness 0.8-1.1 IV septum (thickness) 0.7-1.2 Post. Wall excursion 0.72-1.3 Septal motion Systolic motion R. Ventricular cavity 1.5-2.0 LVEF 60% Paradoxical septal wall motion 2-D: NORMAL LEFT VENTRICLE CONTRACTILITY--RESTING AND POST EXERCISE M-MODE: MV: AV: TV: PV: CHAMBER SIZE: WALL MOTION: NORMAL LEFT VENTRICLE CONTRACTILITY--RESTING AND POST EXERCISE PERICARDIUM: INTERPRETATION: 1. NORMAL LEFT VENTRICLE CONTRACTILITY--RESTING AND POST EXERCISE MTDD
--- NOTE | 2023-01-15 08:51 | ECHO2D ---
Date of Exam: 01/11/23 Ordering Physician: SOPHIA VÁSQUEZ/ DR. Leydi PAYNE Room #: [id number] Reason for Echo: CHEST PAIN M-Mode Normal Adult Results LV Dimensions Normal Adult Results AoV Opening excursions >1.6 >1.6 LVEDD-base- 3.5-5.8 4.3 Ao root dimensions 2.0-3.7 4.1 LVESD-base- 3.1-4.6 L. Atrium dimensions 1.9-3.8 4.3 Post. Wall thickness 0.8-1.1 1.4 IV septum (thickness) 0.7-1.2 1.4 Post. Wall excursion 0.72-1.3 NORMAL Septal motion 0.9 Systolic motion R. Ventricular cavity 1.5-2.0 NORMAL LVEF 60% 62% Paradoxical septal wall motion NORMAL 2-D : 2-D M Mode Echocardiogram was performed using apical four chamber and left parasternal long and short axis views. Mitral, tricuspid and aortic valves appear to be normal. Contractility of the left ventricle seems to be normal, so is the cavity size. ENLARGED LEFT ATRIAL CAVITY SIZE. Aortic root appears to be normal. There is no pericardial effusion. There is no thrombus noted in the left ventricle or left atrial cavity. M-MODE: MV: CALCIFIC MITRAL VALVE ANNULUS AV: NORMAL TV: NORMAL PV: CHAMBER SIZE: ENLARGED LEFT ATRIAL CAVITY WALL MOTION: NORMAL PERICARDIUM: NORMAL INTERPRETATION: 1. LEFT VENTRICLE HYPERTROPHY 2. ENLARGED LEFT ATRIAL CAVITY/ MILDLY ENLARGED AORTIC ROOT 3. NORMAL VALVES 4. NORMAL LEFT VENTRICLE SIZE AND LEFT VENTRICLE CONTRACTILITY MTDD
== END 2023-01-11 12:47 | disposition home or self-care (01) ==
LOC: MEDSURG B 15:54 → ED 15:54 → MEDSURG B 21:46
PROVIDERS: ADMIT Hospitalist; ATTEND Nurse Practitioner Family
DX: I51.7 Cardiomegaly; I10 Essential (primary) hypertension; Z79.899 Other long term (current) drug therapy; Z87.891 Personal history of nicotine dependence; D72.829 Elevated white blood cell count, unspecified; Z51.81 Encounter for therapeutic drug level monitoring; R07.2 Precordial pain; I45.10 Unspecified right bundle-branch block; I45.2 Bifascicular block; R07.9 Chest pain, unspecified